=== PATIENT | male | born 1965 | race Caucasian/White ===

== ENCOUNTER → 2020-08-07 00:14 | Outpatient (CLI) | payer BC, SELFPAY ==
[2020-08-07 18:30] LABS: SARS-CoV-2 RNA PCR Negative
== END ==
PROVIDERS: PCP Family Medicine; Visit Provider Internal Medicine Gastroenterology
DX: Z01.812 Encounter for preprocedural laboratory examination (principal); Z20.822 Contact with and (suspected) exposure to COVID-19
CPT/HCPCS: C9803; U0003; U0005

== ENCOUNTER 2020-08-10 04:26 | Day surgery (SDC) | payer BC, SELFPAY ==
[2020-06-14 11:54] VITALS: BMI 31.6
--- NOTE | 2020-07-31 11:36 | PC.NURSE ---
Patient denies any changes in health history or medications since previous interview. Updated on times and COVID swabbing. No questions at this time.
[2020-08-10 06:38] VITALS: BP 126/83; PULSE 65; RESP 16; TEMP 36.2; O2SAT 99
[2020-08-10] MEDS: LACTATED RINGERS 1,000 ML 150 ML IV CONT (06:59)
--- NOTE | 2020-08-10 07:26 | WPDANESEPPF ---
Anes - Initial Pre Proc Eval Procedure: Operation Date: 08/10/20 08:00 Proposed Procedures p Screening Colonoscopy - Geoffrey Avila MD Date/Time: 08/10/20 07:26 Surgeon: Geoffrey Avila MD Pre Op Diagnosis: hx of colon polyps Patient Data Age: 55 Gender: M Height: 5 ft 10 in Weight: 93.1 kg Last Vital Signs Temp 97.1 F L 08/10/20 06:38 Pulse 65 08/10/20 06:38 Resp 16 08/10/20 06:38 BP 126/83 08/10/20 06:38 Pulse Ox 99 08/10/20 06:38 Allergies Allergy/AdvReac Type Severity Reaction Status Date / Time No Known Allergies Allergy Verified 08/10/20 06:37 Home Medications Medication Instructions Recorded Confirmed Type multivitamin 1 tablet PO DAILY 03/16/19 08/10/20 History lisinopril 10 See Rx Instructions .ROUTE 06/04/20 08/10/20 History mg-hydrochlorothiazide 12.5 mg .COMPLEX tablet tablet paroxetine HCl 30 mg tablet 30 mg PO DAILY #90 tablet 06/04/20 08/10/20 Rx Patient hx anesthesia problems: none Family hx anesthesia problems: none PMFSH Past Medical History Medical History Chronic low back pain Surgical History Surgical History H/O discectomy 10/2014 - C5-6 C6-C7 diskectomy fusion History of cervical spinal surgery 07/24/17 Family History Family History Other Diabetes mellitus Hypertension Social History Social History Smoking status: Never smoker Second hand tobacco smoke exposure: No Alcohol intake: never Substance use: never Substance use type: does not use Living arrangements: with family Gender identity (if verbalized by the patient): Male Spiritual care concerns: No Anes - Eval Final PreProcedure Day of Procedure 08/10/20 07:26 Patient weight: overweight Heart: regular rate and rhythm Lungs: clear to auscultation Airway: Mallampati scale class II Neurological: alert and oriented Last oral intake: >/= 8 hours ASA classification: II Emergent: no Anesthetic plan: proceed Anesthesia type and monitoring: general GIVS and standard monitoring Informed Consent: The patient's anesthetic plan and its attendant risks and benefits were discussed with the patient/family/POA. Questions were solicited and answers provided to the satisfaction of the patient/family/POA.
--- NOTE | 2020-08-10 08:06 | PM.HPGS ---
History of Present Illness History of Present Illness Consent: Risks, benefits, and alternatives have been discussed and questions answered. Patient agrees to proceed with procedure. Chief complaint: hx of colon polyps Narrative: Jacek Ngo is a 55 year old male with colon polyps in 2013 Review of Systems Constitutional: Constitutional: Denies headache(s) and Denies weakness Eyes: Eyes: Denies blurry vision ENT: Reports Normal hearing present, Denies headache(s) and Denies neck pain Cardiovascular: Cardiovascular: Denies chest pain and Denies dyspnea Respiratory: Respiratory: Denies dyspnea Gastrointestinal: Gastrointestinal: Reports no additional gastrointestinal complaints Genitourinary: Genitourinary: Denies dysuria Musculoskeletal: Musculoskeletal: Denies neck pain Integumentary/Breasts: Skin/Breast: Denies dry skin Neurologic: Reports Normal hearing present, Denies headache(s) and Denies weakness Psychiatric: Psychiatric: Denies anxiety Endocrine: Endocrine: Denies change in body appearance Hematologic/Lymphatic: Hematologic/Lymphatic: Denies easy bleeding Allergic/Immunologic: Allergic/Immunologic: Denies urticaria PMFSH Past Medical History Medical History Chronic low back pain Surgical History Surgical History H/O discectomy 10/2014 - C5-6 C6-C7 diskectomy fusion History of cervical spinal surgery 07/24/17 Family History Family History Other Diabetes mellitus Hypertension Social History Social History Smoking status: Never smoker Second hand tobacco smoke exposure: No Alcohol intake: never Substance use: never Substance use type: does not use Living arrangements: with family Gender identity (if verbalized by the patient): Male Spiritual care concerns: No Meds Home Medications and Allergies Home Medications Medication Instructions Recorded Confirmed Type multivitamin 1 tablet PO DAILY 03/16/19 08/10/20 History lisinopril 10 See Rx Instructions .ROUTE 06/04/20 08/10/20 History mg-hydrochlorothiazide 12.5 mg .COMPLEX tablet tablet paroxetine HCl 30 mg tablet 30 mg PO DAILY #90 tablet 06/04/20 08/10/20 Rx Allergies Allergy/AdvReac Type Severity Reaction Status Date / Time No Known Allergies Allergy Verified 08/10/20 06:37 Vital Signs Vital Signs - 24 hr 08/10/20 06:38 Temperature 97.1 F L Pulse Rate 65 Respiratory Rate 16 Blood Pressure 126/83 Pulse Oximetry 99 Exam Const: General: comfortable and no acute distress HENMT: General nose exam: Normal nares present Eyes: General: appearance normal, both eyes and all related structures Neck: Neck: no JVD Resp: Auscultation: clear to auscultation bilaterally Cardio: Rate: regular rate Rhythm: regular rhythm GI: Inspection: non-distended GI Palp: Yes Soft to palpation Skin: General skin exam: normal color Neuro: General: gait normal Speech: normal speech Extrem: General: normal to inspection Psych: Mental Status: mental status grossly normal Assessment and Plan Assessment and plan (1) Colon polyp: Code(s): K63.5 - Polyp of colon Status: Acute Assessment and Plan: colonoscopy
[2020-08-10 08:22] VITALS: BP 99/68; PULSE 62; RESP 17; O2SAT 98
[2020-08-10 08:32] VITALS: BP 106/68; PULSE 66; RESP 22; O2SAT 97
[2020-08-10 08:42] VITALS: BP 106/77; PULSE 60; RESP 21; O2SAT 100
== END 2020-08-10 08:48 | disposition home or self-care (01) ==
PROVIDERS: PCP Family Medicine; Visit Provider Internal Medicine Gastroenterology
PROC: 0DJD8ZZ Inspection of Lower Intestinal Tract, Via Natural or Artificial Opening Endoscopic (ICD-10-PCS; CPT 45378; principal; 2020-08-10 08:00)
DX: Z12.11 Encounter for screening for malignant neoplasm of colon (principal); D12.2 Benign neoplasm of ascending colon; D12.0 Benign neoplasm of cecum; K57.30 Diverticulosis of large intestine without perforation or abscess without bleeding; K64.8 Other hemorrhoids
CPT/HCPCS: 45380; 88305; J2704; J7120

== ENCOUNTER 2023-03-01 12:54 | Emergency (ER) | payer BC, SELFPAY ==
--- NOTE | ~2023-03-01 | XR_ITS ---
XR hand RT min 3V 03/01/2023 13:32 INDICATION: Laceration right fifth digit PROCEDURE: 3 views right hand COMPARISON: No prior studies for comparison. FINDINGS: Fracture, dislocation or subluxation is not identified. The soft tissues appear within norm al limits. No foreign bodies are identified. There are small loose bodies adjacent to the wrist, lik nora degenerative. IMPRESSION: 1: NO ACUTE BONE OR JOINT ABNORMALITY IDENTIFIED. Reviewed, dictated and finalized at location A.
[2023-03-01 12:56] VITALS: BP 152/95; PULSE 79; RESP 20; TEMP 36.4; O2SAT 99
--- NOTE | 2023-03-01 13:28 | PC.NURSE ---
pt taken to xray at this time
[2023-03-01] MEDS: HYDROcodone/acetaminophen (*CRX) 5-325 MG TABLET 1 TAB PO (13:37)
[2023-03-01] MEDS: TETANUS,DIPHTHERIA,AC PERTUSSIS ADULT (0.5 ML) BOOSTRIX IM (13:37)
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
[2023-03-01] MEDS: LIDO 2%/EPINEPHRINE 1:100,000 20 ML VIAL 10 ML INFILTRATE (15:04)
[2023-03-01 15:27] VITALS: BP 145/78; PULSE 70; RESP 18; O2SAT 99
== END 2023-03-01 15:29 | disposition home or self-care (01) ==
PROVIDERS: Emergency Provider Nurse Practitioner Family; PCP Family Medicine
DX: S61.411A Laceration without foreign body of right hand, initial encounter (principal); Z23 Encounter for immunization; Z86.010 Personal history of colon polyps; W26.8XXA Contact with other sharp object(s), not elsewhere classified, initial encounter
CPT/HCPCS: 12002; 73130; 90471; 90715; 99283; A9270